=== PATIENT | female | born 1965 | race Two or more races ===

== ENCOUNTER 2019-10-09 09:04 | Outpatient (CLI) | payer OTHER ==
[2019-10-09 13:14] LABS: BASOPHILS # (AUTO) 0.06 x10^3/uL (0-0.1); BASOPHILS % (AUTO) 1 % (0-1); EOSINOPHILS % (AUTO) 2 % (1-7); LYMPHOCYTES # (AUTO) 3.19 x10^3/uL (1-3.4); LYMPHOCYTES % (AUTO) 47 % (22-44); MD NO; MEAN CORPUSCULAR HEMOGLOBIN 26.1 pg (27.0-34.8); MEAN CORPUSCULAR HGB CONC 32.4 g/dL (32.4-35.8); MEAN CORPUSCULAR VOLUME 80.4 fL (80-100); MEAN PLATELET VOLUME 9.9 fL (7.4-10.4); MONOCYTES # (AUTO) 0.54 x10^3/uL (0.2-0.8); MONOCYTES % (AUTO) 8 % (2-9); NEUTROPHILS # (AUTO) 2.95 x10^3/uL (1.8-6.8); NEUTROPHILS % (AUTO) 43 % (42-75); PLATELET COUNT 227 x10^3/uL (130-400); RED BLOOD COUNT 4.53 x10^6/uL (3.82-5.3); RED CELL DISTRIBUTION WIDTH 15.2 % (9.6-15.2)
[2019-10-09 14:07] LABS: CHLORIDE 107 mmol/L (98-107)
[2019-10-09 15:15] LABS: ALANINE AMINOTRANSFERASE 20 U/L (12-78); ALBUMIN 4.1 g/dL (3.4-5.0); ALKALINE PHOSPHATASE 89 U/L (45-117); ANION GAP 8 mmol/L (5-15); BILIRUBIN,TOTAL 0.5 mg/dL (0.2-1.0); CALCIUM 9.2 mg/dL (8.5-10.1); CHOLESTEROL, TOTAL 198 mg/dL (140-239); CREATININE 0.76 mg/dL (0.55-1.02); FREE T4 (FREE THYROXINE) 1.14 ng/dL (0.76-1.46); HDL CHOL % 25 % (28-40); HDL CHOLESTEROL (DIRECT) 50 mg/dL (40-60); LDL CHOLESTEROL,CALCULATED 122 mg/dL (54-169); LDL/HDL RATIO 2.4 (0.5-3.0); TOTAL PROTEIN 8.8 g/dL (6.4-8.2); TRIGLYCERIDES 128 mg/dL (50-200); VLDL CHOLESTEROL 26 mg/dL (0-25)
== END 2019-10-09 23:59 | disposition home or self-care (01) ==
LOC: CFH 09:04
PROVIDERS: ATTEND Physician Assistant
DX: E78.5 Hyperlipidemia, unspecified (principal); F41.9 Anxiety disorder, unspecified; G43.109 Migraine with aura, not intractable, without status migrainosus
CPT/HCPCS: 36415; 80053; 80061; 84439; 84443; 84480; 85025

== ENCOUNTER → 2020-01-15 | Outpatient (CLI) | payer OTHER | END | disposition home or self-care (01) | LOC: CVU 07:52 | PROVIDERS: ATTEND Internal Medicine Cardiovascular Disease | DX: I34.0 Nonrheumatic mitral (valve) insufficiency (principal) | CPT/HCPCS: 93306 ==